=== PATIENT | male | born 2000 | race Caucasian/White ===

== ENCOUNTER 2019-08-23 10:03 | Emergency (ER) | payer OTHER ==
[~2019-08-23] VITALS: Ht 185.4 cm; Wt 113.4 kg
[~2019-08-23 10:03] MED LIST: IBUPROFEN 600600 M1 PO
[2019-08-23] MEDS ORDERED: TESSALON PERLE100 MG PO (11:50)
[2019-08-23] MEDS ORDERED: PROAIR HFA8.5 GM INH (11:50)
[2019-08-23] MEDS ORDERED: PREDNISONE 20 M20 MG PO (11:50)
[2019-08-23 12:36] VITALS: BP 138/84
== END 2019-08-23 12:15 | disposition home or self-care (01) ==
LOC: ER 10:03
DX: J45.901 Unspecified asthma with (acute) exacerbation (principal); F17.210 Nicotine dependence, cigarettes, uncomplicated